=== PATIENT | male | born 1955 | race Caucasian/White ===

== ENCOUNTER 2024-04-01 07:32 | Emergency (ER) | payer SELFPAY ==
[2024-04-01 07:32] VITALS: BP 152/84; PULSE 68; RESP 20; TEMP 36.7; O2SAT 99; BMI 30.8
[2024-04-01 07:33] VITALS: BP 152/84; PULSE 86; O2SAT 95
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
[2024-04-01 07:53] LABS: Basophils # 0.1 K/mm3 (0-0.2); Basophils % 0.6 % (0.1-2.0); Eosinophils # 0.1 K/mm3 (0.0-0.4); Eosinophils % 1.2 % (0.1-12.0); Hemoglobin 14.1 g/dL (14.1-18.0); Lymphocytes # 1.8 K/mm3 (0.7-4.5); Lymphocytes % 14.8 % (10-50); Mean Corpuscular HGB Conc 33.6 g/dL (31.8-35.4); Mean Corpuscular Hemoglobin 31.1 pg (27.0-31.2); Mean Corpuscular Volume 92.5 fl (80-94); Mean Platelet Volume 9.4 fl (7.4-10.4); Monocytes # 0.8 K/mm3 (0.1-1.0); Monocytes % 6.4 % (1.7-9.3); Neutrophils # 9.2 K/mm3 (1.8-7.8); Neutrophils % 75.9 % (37.0-80.0); Platelet Count 231 K/mm3 (142-424); Red Blood Count 4.54 M/mm3 (4.60-6.20); Red Cell Distribution Width 14.1 % (11.5-17.5); White Blood Count 12.1 K/mm3 (4.8-10.8)
[2024-04-01 08:01] VITALS: BP 142/79; PULSE 61; O2SAT 96
[2024-04-01] MEDS: CALCIUM CARBONATE 500MG CHEWTAB 500 MG PO (08:03)
[2024-04-01 08:24] LABS: INR 0.89 (0.9-1.1); Prothrombin Time 9.9 seconds (9.2-12.1)
[2024-04-01 08:30] VITALS: BP 138/71; PULSE 99; O2SAT 90
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
[2024-04-01 09:04] VITALS: BP 134/81; PULSE 97; RESP 18; TEMP 36.7; O2SAT 95
== END 2024-04-01 09:11 | disposition home or self-care (01) ==
PROVIDERS: Emergency Provider Student in an Organized Health Care Education/Training Program; PCP Family Medicine
DX: Z04.1 Encounter for examination and observation following transport accident (principal); E11.51 Type 2 diabetes mellitus with diabetic peripheral angiopathy without gangrene; M54.50 Low back pain, unspecified; F17.210 Nicotine dependence, cigarettes, uncomplicated
CPT/HCPCS: 71045; 72170; 85025; 85610; 99283